=== PATIENT | female | born 1990 | race Asian ===

== ENCOUNTER → 2018-09-25 | Outpatient (CLI) | payer OTHER ==
[2018-09-28 20:41] LABS: HIV 1&2 ANTIBODIES NOTE Negative; HIV1 RNA QUAL. (NAA) Negative (Negative)
== END | disposition home or self-care (01) ==
LOC: LABMN 18:02
PROVIDERS: ATTEND Internal Medicine
DX: Z76.89 Persons encountering health services in other specified circumstances (principal)
CPT/HCPCS: 86701; 86702; 86706; 86803; 87340; 87535

== ENCOUNTER → 2019-01-08 | Outpatient (CLI) | payer OTHER ==
[2019-01-09 04:06] LABS: HIV 1-2 SCREEN 4TH GEN W/RFLX Non Reactive (Non Reactive)
== END | disposition home or self-care (01) ==
LOC: LABMN 09:55
PROVIDERS: ATTEND Internal Medicine
DX: Z76.89 Persons encountering health services in other specified circumstances (principal)
CPT/HCPCS: 86706; 86803; 87340; 87389

== ENCOUNTER → 2020-10-24 | Outpatient (CLI) | payer OTHER ==
[2020-10-25 06:06] LABS: RUBELLA AB IGG-REFLAB 3.28 index (Immune >0.99)
== END | disposition home or self-care (01) ==
LOC: LABMN 15:38
PROVIDERS: ATTEND Internal Medicine
DX: Z02.1 Encounter for pre-employment examination (principal)
CPT/HCPCS: 86706; 86735; 86762; 86765; 86787